=== PATIENT | male | born 1945 | race Caucasian/White ===

== ENCOUNTER 2018-08-01 06:11 | Day surgery (SDC) | payer MEDICARE, BC ==
[2018-07-31 09:30] VITALS: BMI 21.6
[2018-08-01] MEDS ORDERED: Fentanyl 250 MCG/5 ML VIAL ONE (06:51)
[2018-08-01 06:53] LABS: Anion Gap 13 mmol/L (10-20); BUN (Urea Nitrogen) 24 mg/dL (8.4-25.7); Calc. Creatinine Clearance 46 mL/min (70-130); Calcium 9.7 mg/dL (7.8-10.44); Carbon Dioxide 25 mmol/L (23-31); Chloride 105 mmol/L (98-107); Estimated GFR-MDRD 50; Glucose 99 mg/dL (83-110); Potassium 4.3 mmol/L (3.5-5.1); Sodium 139 mmol/L (136-145)
[2018-08-01] MEDS ORDERED: Bupivacaine/Epinephrine 0.25% 30 ML VIAL ONE (06:55)
[2018-08-01] MEDS ORDERED: Ketorolac Tromethamine 30 MG/ML VIAL ONE (06:59)
[2018-08-01] MEDS ORDERED: CEFAZOLIN/Water 2 GM/20 ML SYRINGE ONE (06:59)
--- NOTE | 2018-08-01 09:08 | RAD ---
PORTABLE UPRIGHT FRONTAL CHEST RADIOGRAPH: DATE: 08/01/18. History Preoperative patient. FINDINGS: No pneumothorax or pleural fluid. No focal consolidation or alveolar edema. Heart and mediastinal c ontours are unremarkable. IMPRESSION: No acute findings. POS: [facility]
[2018-08-01] MEDS ORDERED: ePHEDrine/0.9% NaCl/PF SYRINGE 50 mg/10 ml ONE (09:47)
[2018-08-01] MEDS ORDERED: Glycopyrrolate 0.2 MG/ML 5 ML SYRINGE ONE (09:47)
[2018-08-01] MEDS ORDERED: Dexamethasone 20 MG/5 ML VIAL ONE (09:47)
[2018-08-01] MEDS ORDERED: PROPOFOL 200 MG/20 ML VIAL ONE (09:47)
[2018-08-01] MEDS ORDERED: Lidocaine 1% PF 5 ML VIAL ONE (09:47)
[2018-08-01] MEDS ORDERED: Ondansetron HCl/PF 4 MG/2 ML Vial ONE (09:47)
[2018-08-01] MEDS ORDERED: Fentanyl 100 MCG/2 ML VIAL ONE (11:00)
[2018-08-01] MEDS ORDERED: HYDROcodone/Acetaminophen 7.5/325 mg Tablet ONE ×2 (12:24→17:16)
--- NOTE | 2018-08-02 11:31 | OP ---
DATE OF PROCEDURE: 08/01/2018 PREOPERATIVE DIAGNOSES: Recurrent left inguinal hernia with a new right inguinal hernia, both suspec carmelita to be femoral hernias. POSTOPERATIVE DIAGNOSIS: Bilateral femoral hernias. OPERATION PERFORMED: Robotic repair of bilateral femoral hernias with 3DMax mesh. SURGEON: Kurt Doe M.D. ANESTHESIA: General endotracheal. INDICATIONS: The patient is a 73-year-old white male. He had previously undergone a left inguinal h ernia repair with mesh patch and plug a few years ago. When he presented recently, he was noted to h ave bilateral inguinal hernias. Examination of both of these seemed to be consistent with femoral he rnias. I recommended a bilateral robotic repair. OPERATIVE PROCEDURE IN DETAIL: Informed consent was obtained. The patient was taken to the operatin g room where general endotracheal anesthesia was obtained with the patient in supine position. Abdom en was prepped with ChloraPrep and draped in sterile fashion. Martinez catheter was placed. Local anes thetic was infiltrated using 0.25% Marcaine with epinephrine. A 12-mm supraumbilical incision was cr eated through which a Veress needle was passed into the peritoneal cavity and pneumoperitoneum establ ished using carbon dioxide up to a pressure of 15 mmHg. A 12-mm trocar was passed through this incis ion and robotic camera was passed through the port. Under direct vision, 2 additional 8-mm robotic p orts were placed at the supraumbilical level. The robot was then docked to the ports and to the came ra and the operation was continued from the robotic console. Initial examination revealed 2 obvious femoral hernias. The plug from the prior hernia repair at the left direct space was also visualized. Attention was turned first to the right side. A transverse peritoneal incision was created several c entimeters above the hernia. Preperitoneal dissection was carried inferiorly. I was able to dissect the pubic tubercle to the medial aspect and the iliopubic tract laterally. The peritoneum was caref ully dissected off the underlying cord structures. The peritoneum was easily dissected out of the fe moral hernia. Fatty tissue that was also herniated through this defect was also reduced. I widely m obilized the peritoneum off the underlying structures. A large 3DMax mesh patch was obtained and ha elan within the preperitoneal space. It was secured with Vicryl sutures. One of these was placed med ially to the pubic tubercle, one was placed medial to the epigastric vessels and one was placed later al, but anterior to the iliopubic tract. The suture that was placed near the epigastric vessels was placed in such a fashion as to adequately cover the direct space while still leaving enough mesh infe rior to cover the femoral hernia. The peritoneal defect was then closed with a running suture of 3-0 Stratafix in a lateral to medial f ashion. At the medial aspect, this incorporated the reduced fatty tissue from within the femoral her ammy as well. Attention was then turned to the left side. A similar peritoneal incision was created. Care was julianne en to dissect the peritoneum off the mesh plug. The femoral hernia was again recognized and dissecte d. After the preperitoneal space had been fully developed, the mesh patch was placed in a similar fa shion and again secured with the Vicryl sutures. The peritoneum was then closed with a running sutur e of 3-0 Stratafix. Closure of this defect was more challenging and I had to mobilize tissue from th e medial aspect inferiorly to adequately close the peritoneum, but this was completely closed with no tension or bleeding. The fascial defect at the 12-mm port site was closed with 0 Vicryl suture using a GraNee needle. All ports and instruments removed under direct vision. Pneumoperitoneum was carefully evacuated. 0.25% Marcaine with epinephrine was infiltrated at the port site. Skin edges approximated with 4-0 Monocr yl subcuticular suture. Dermabond was placed externally. There were no complications. The patient tolerated the procedure well and was taken to recovery room in stable condition.
--- NOTE | 2018-08-04 17:31 | EKG ---
Test Reason : PREOP Blood Pressure : / mmHG Vent. Rate : 052 BPM Atrial Rate : 052 BPM P-R Int : 178 ms QRS Dur : 128 ms QT Int : 482 ms P-R-T Axes : -21 029 016 degrees QTc Int : 448 ms Sinus bradycardia Right bundle branch block Abnormal ECG When compared with ECG of 09-JUN-2014 12:48, No significant change was found Confirmed by JARED GONZALEZ (2) on 08/04/2018 5:31:29 PM Referred By: TANNER Confirmed By:JARED GONZALEZ
== END 2018-08-01 18:04 | disposition home or self-care (01) ==
LOC: SDC 06:11
PROVIDERS: ATTEND Specialist
PROC: 0YUE4JZ Supplement Bilateral Femoral Region with Synthetic Substitute, Percutaneous Endoscopic Approach (ICD-10-PCS; principal; 2018-08-01)
DX: K41.20 Bilateral femoral hernia, without obstruction or gangrene, not specified as recurrent (principal); F17.290 Nicotine dependence, other tobacco product, uncomplicated; Z79.82 Long term (current) use of aspirin; Z79.899 Other long term (current) drug therapy; Z98.890 Other specified postprocedural states
CPT/HCPCS: 49659; 51798; 71045; 80048; 93005; 96374; C1781; 36415; 93010; J0131; J1885; J3010

== ENCOUNTER 2019-12-17 08:29 | Outpatient (CLI) | payer MEDICARE, BC ==
--- NOTE | 2019-12-17 10:54 | MRI ---
MRI OF THE PROSTATE WITHOUT AND WITH CONTRAST: COMPARISON: None. HISTORY: Elevated PSA. Negative prostate biopsy in [place] 2 years ago. TECHNIQUE: Multiplanar, multisequence MR images were obtained in the prostate without and with contrast. FINDINGS: There is moderate hypertrophy of the central gland consistent with BPH. There is a well-circumscribe d low T2 and high T1 focus within a BPH nodule in the right lobe of the prostate near the apex. This likely represents either a small amount of proteinaceous debris or blood product within this BPH nod ule. No suspicious low T2 signal lesions are seen throughout the prostate. No restricted diffusion or low signal on ADC map is seen in the peripheral zone in the prostate. The seminal vessels are intact. The neurovascular bundles are intact. Scattered diverticula are see n in the colon. No pelvic adenopathy is seen. No marrow signal abnormality is present. IMPRESSION: PIRADS category 2 - low likelihood that a clinically significant cancer is present. POS: [facility]
== END 2019-12-17 08:30 | disposition home or self-care (01) ==
LOC: TBSIIMAG 08:29
PROVIDERS: ATTEND Urology
DX: R97.20 Elevated prostate specific antigen [PSA] (principal); R68.89 Other general symptoms and signs; Z98.890 Other specified postprocedural states
CPT/HCPCS: 72197

== ENCOUNTER 2020-01-21 09:05 | Outpatient (CLI) | payer MEDICARE, BC ==
--- NOTE | 2020-01-21 10:19 | CT ---
CT OF THE ABDOMEN AND PELVIS WITH AND WITHOUT CONTRAST: DATE: 01/21/2020. COMPARISON: None. HISTORY: Elevated PSA, hematuria. TECHNIQUE: Axial CT imaging at 3 mm intervals from the lung bases through the pubic symphysis with and without I V contrast using CT urogram protocol. Coronal and sagittal reformatted imaging of the urographic phase provided. FINDINGS: The visualized lung bases appear unremarkable. The noncontrast enhanced imaging demonstrates no evidence for nephrolithiasis or obstructive uropathy . No free intraperitoneal air or fluid is seen. The pre and postcontrast imaging of the liver, gallbladder, spleen, pancreas, adrenal glands, and kid neys demonstrates no acute findings. There are a few scattered tiny renal hypodensities bilaterally, too small to characterize, measuring up to 5 mm on the right and 7-8 mm on the left. No suspicious enhancing solid renal mass appreciated on either side. The prostate gland is enlarged and heterogeneous, measuring at least 7.3 x 4.9 x 5.6 cm, demonstratin g mass effect on the base of the urinary bladder. There is multifocal diverticulosis of the sigmoid colon with no evidence for diverticulitis. No evide nce for bowel inflammatory change or bowel obstruction. The vascular structures of the abdomen/pelvis appear grossly unremarkable. No abdominal or pelvic lym phadenopathy. Urographic phase imaging demonstrates no filling defect within the renal collecting system or opacifi ed portions of the ureter on either side. Urinary bladder is not optimally assessed on this exam. No worrisome lytic or blastic bone lesion. IMPRESSION: 1. No evidence for nephrolithiasis or obstructive uropathy. Small bilateral renal hypodensities are noted with no suspicious solid enhancing renal mass lesion. 2. The prostate gland is quite enlarged. Transcribed Date/Time: 01/21/2020 10:41 AM
[2020-01-21] MEDS ORDERED: Iopamidol 370 76% 100 ML VIAL ONE (15:18)
== END 2020-01-21 09:06 | disposition home or self-care (01) ==
LOC: BICCT 09:05
PROVIDERS: ATTEND Urology
DX: N40.1 Benign prostatic hyperplasia with lower urinary tract symptoms (principal); R97.20 Elevated prostate specific antigen [PSA]; R31.29 Other microscopic hematuria; R93.5 Abnormal findings on diagnostic imaging of other abdominal regions, including retroperitoneum
CPT/HCPCS: 36415; 74178; 80048; 81001; 82565; 87086; Q9967

== ENCOUNTER 2021-01-19 09:05 | Outpatient (CLI) | payer MEDICARE, BC | END 2021-01-19 09:06 | disposition home or self-care (01) | LOC: BICULT 09:05 | PROVIDERS: ATTEND Urology | DX: N28.9 Disorder of kidney and ureter, unspecified (principal); R97.20 Elevated prostate specific antigen [PSA]; R35.1 Nocturia; R31.29 Other microscopic hematuria | CPT/HCPCS: 36415; 76770; 80048; 81001; 84153; 87086 ==

== ENCOUNTER 2021-10-25 17:42 | Inpatient (IN) | payer MEDICARE, BC ==
[2021-10-25 18:10] LABS: Actual Bicarbonate (HCO3a) 16.9 mEq/L (22-28); Base Excess (BEa) -6.3 mEq/L (-2.0 to +3.0); CO2 Tension 27.8 mmHg (35.0-45.0); Calcium, Ionized (arterial) 1.11 mmol/L (1.12-1.30); Carboxyhemoglobin (COHb) 0.4 gm% (0.0-3.0); Hemoglobin (Hb) 14.3 g/dL (14.0-18.0); O2 Tension (PaO2), arterial 249.1 mmHg (> 70.0); Potassium - ABG Lab 3.36 mmol/L (3.70-5.30)
[2021-10-25 18:12] LABS: Puncture Site LBA
[2021-10-25] MEDS ORDERED: Propofol 1,000 MG/100 ML VIAL IV ONE (18:14)
[2021-10-25] MEDS: Propofol 1,000 MG/100 ML VIAL IV PRN (18:18)
[2021-10-25] MEDS ORDERED: Ondansetron PF 4 MG/2 ML Vial IVP PRN (18:22)
[2021-10-25] MEDS ORDERED: hydrALAZINE 20 MG/ML VIAL SLOW IVP PRN (18:22)
[2021-10-25] MEDS ORDERED: Acetaminophen 650 MG Suppository PR PRN (18:22)
[2021-10-25] MEDS ORDERED: Acetaminophen 500 MG TAB PO PRN (18:22)
[2021-10-25] MEDS ORDERED: Ondansetron ODT 4 MG TAB PO PRN (18:22)
[2021-10-25] MEDS ORDERED: Electrolyte Replacement Protocol 1 EACH FS PRN (18:25)
[2021-10-25] MEDS ORDERED: Morphine 2 MG/ML VIAL SLOW IVP PRN (18:30)
[2021-10-25] MEDS ORDERED: Morphine 4 MG/ML VIAL SLOW IVP PRN ×2 (18:30→18:45)
[2021-10-25] MEDS ORDERED: Propofol BOLUS 1,000 MG/100 ML VIAL IV PRN (18:30)
[2021-10-25] MEDS ORDERED: Fentanyl BOLUS 250 ML IVPB PRN (18:30)
[2021-10-25] MEDS ORDERED: Lorazepam 2 MG/ML VIAL SLOW IVP PRN (18:30)
[2021-10-25] MEDS ORDERED: Sodium Chloride 3% 100 ML IVPB SCH (18:30)
[2021-10-25] MEDS ORDERED: DISCONTINUE PREVIOUS NARCOTIC PAIN MEDICATIONS AND BENZODIAZEPINES FS SCH (18:30)
[2021-10-25 18:33] LABS: #Lymphocytes 1.5 thou/uL (1.20-3.40); #Monocytes 1.2 thou/uL (0.11-0.59); #Neutrophils 7.1 thou/uL (1.40-6.50); %Basophils 0.1 % (0.0-1.0); %Eosinophils 0.4 % (0.0-10.0); %Monocytes 12.3 % (0.0-10.0); %Neutrophils 72.1 % (42.0-75.0); Hemoglobin 13.8 g/dL (14.0-18.0); Mean Corpuscular HGB CONC 34.5 g/dL (32.0-36.0); Mean Corpuscular Hemoglobin 30.1 pg (27.0-31.0); Mean Corpuscular Volume 87.1 fL (78.0-98.0); Mean Platelet Volume 7.4 fL (7.4-10.4); Platelet Count 177 thou/uL (130-400); RBC Distribution Width 10.9 % (11.5-14.5); White Blood Cell (WBC) Count 9.8 thou/uL (4.8-10.8)
[2021-10-25 18:54] LABS: ALT (SGPT) 16 U/L (8-55); AST (SGOT) 20 U/L (5-34); Albumin 3.7 g/dL (3.4-4.8); Alkaline Phosphatase 74 U/L (40-110); Anion Gap 20 mmol/L (10-20); BUN (Urea Nitrogen) 14 mg/dL (8.4-25.7); Bilirubin, Total 1.3 mg/dL (0.2-1.2); Calc. Creatinine Clearance 0 mL/min (70-130); Calcium 8.9 mg/dL (7.8-10.44); Carbon Dioxide 17 mmol/L (23-31); Chloride 85 mmol/L (98-107); Globulin 2.8 g/dL (2.4-3.5); Glucose 122 mg/dL (83-110); Magnesium 1.7 mg/dL (1.6-2.6); Potassium 3.5 mmol/L (3.5-5.1); Protein, Total 6.5 g/dL (5.8-8.1)
[2021-10-25 19:07] LABS: Lactic Acid 8.4 mmol/L (0.5-2.2); Phosphorus 1.8 mg/dL (2.3-4.7); Sodium 118 mmol/L (136-145)
[2021-10-25] MEDS: Fentanyl CADD 100 ML IV SCH (19:13)
[2021-10-25] MEDS ORDERED: Potassium Phosphate 15 MMOL in Sodium Chloride 0.9% 100 ML IVPB SCH (19:15)
[2021-10-25] MEDS ORDERED: Magnesium 2 GM/50 ML 2 GM in Premix Bag 1 BAG IVPB SCH (19:15)
[2021-10-25] MEDS: levETIRAcetam in NS 500 MG in Premix Bag 1 BAG IVPB SCH ×2 (19:46→21:11)
[2021-10-25] MEDS: Famotidine/PF 20 mg/2ml Vial SLOW IVP SCH (19:46)
[2021-10-25 20:38] LABS: Sodium 120 mmol/L (136-145)
[2021-10-25 20:58] LABS: Lactic Acid 1.5 mmol/L (0.5-2.2)
[2021-10-25 23:31] LABS: Sodium 119 mmol/L (136-145)
[2021-10-25 23:32] LABS: Lactic Acid 1.4 mmol/L (0.5-2.2)
[2021-10-26] MEDS: Propofol 1,000 MG/100 ML VIAL IV PRN ×2 (01:15→15:15)
[2021-10-26 01:40] LABS: Sodium 122 mmol/L (136-145)
[2021-10-26 04:06] LABS: #Basophils 0.1 thou/uL (0.0-0.2); #Eosinphils 0.1 thou/uL (0.0-0.7); #Lymphocytes 1.2 thou/uL (1.20-3.40); #Neutrophils 5.5 thou/uL (1.40-6.50); %Basophils 0.7 % (0.0-1.0); %Eosinophils 1.7 % (0.0-10.0); %Lymphocytes 15.3 % (21.0-51.0); %Monocytes 12.8 % (0.0-10.0); %Neutrophils 69.5 % (42.0-75.0); Hemoglobin 13.2 g/dL (14.0-18.0); Mean Corpuscular HGB CONC 35.1 g/dL (32.0-36.0); Mean Corpuscular Hemoglobin 30.4 pg (27.0-31.0); Mean Corpuscular Volume 86.7 fL (78.0-98.0); Mean Platelet Volume 8.3 fL (7.4-10.4); Platelet Count 170 thou/uL (130-400); RBC Distribution Width 11.2 % (11.5-14.5); Red Blood Cell (RBC) Count 4.34 mill/uL (4.70-6.10); White Blood Cell (WBC) Count 7.9 thou/uL (4.8-10.8)
[2021-10-26 04:24] LABS: Sodium 121 mmol/L (136-145)
[2021-10-26 04:32] LABS: ALT (SGPT) 15 U/L (8-55); AST (SGOT) 24 U/L (5-34); Albumin 3.4 g/dL (3.4-4.8); Alkaline Phosphatase 74 U/L (40-110); Anion Gap 12 mmol/L (10-20); BUN (Urea Nitrogen) 12 mg/dL (8.4-25.7); Bilirubin, Total 1.2 mg/dL (0.2-1.2); Calc. Creatinine Clearance 72 mL/min (70-130); Calcium 8.3 mg/dL (7.8-10.44); Carbon Dioxide 25 mmol/L (23-31); Chloride 87 mmol/L (98-107); Globulin 2.6 g/dL (2.4-3.5); Glucose 89 mg/dL (83-110); Potassium 3.1 mmol/L (3.5-5.1); Sodium 121 mmol/L (136-145)
[2021-10-26] MEDS: Potassium Chloride 20 MEQ in Premix Bag 1 BAG IVPB SCH ×2 (04:53→06:35)
[2021-10-26] MEDS ORDERED: Potassium Chloride 20 MEQ in Premix Bag 1 BAG IVPB SCH (05:00)
[2021-10-26 07:01] LABS: Sodium 115 mmol/L (136-145)
[2021-10-26 07:01] LABS: Actual Bicarbonate (HCO3a) 26.1 mEq/L (22-28); Base Excess (BEa) 2.5 mEq/L (-2.0 to +3.0); CO2 Tension 37.3 mmHg (35.0-45.0); Calcium, Ionized (arterial) 1.12 mmol/L (1.12-1.30); Carboxyhemoglobin (COHb) 0.4 gm% (0.0-3.0); Hemoglobin (Hb) 14.6 g/dL (14.0-18.0); O2 Tension (PaO2), arterial 128.5 mmHg (> 70.0); Potassium - ABG Lab 3.31 mmol/L (3.70-5.30); pH, Arterial 7.46 (7.35-7.45)
[2021-10-26 07:15] LABS: ALV-art Gradient 110.075 mmHg (0-20); Puncture Site LRA
[2021-10-26 09:18] LABS: Bacteria/HPF None Seen HPF (None Seen); Bilirubin Negative (Negative); Blood, Urine Trace (Negative); Clarity Clear (Clear); Glucose, Urine (Dipstick) Normal (Negative); Ketone, Urine Negative (Negative); Leukocyte Negative Leu/uL (Negative); Nitrite Negative (Negative); Protein, Urine (Dipstick) Negative (Neg-Trace); RBC/HPF 0-3 HPF (0-3); Specific Gravity, Urine 1.012 (1.002-1.036); Squamous Epithelial None Seen HPF (0-3); Urobilinogen Normal mg/dL (Less than 2); WBC/HPF 0-3 HPF (0-3); pH, Urine 5.5 (5.0-9.0)
[2021-10-26 09:43] LABS: Anion Gap 9 mmol/L (10-20); BUN (Urea Nitrogen) 13 mg/dL (8.4-25.7); Calc. Creatinine Clearance 64 mL/min (70-130); Calcium 8.6 mg/dL (7.8-10.44); Carbon Dioxide 28 mmol/L (23-31); Chloride 87 mmol/L (98-107); Glucose 98 mg/dL (83-110); Potassium 3.4 mmol/L (3.5-5.1); Sodium 121 mmol/L (136-145)
[2021-10-26] MEDS: Famotidine/PF 20 mg/2ml Vial SLOW IVP SCH ×2 (10:02→20:56)
[2021-10-26] MEDS: levETIRAcetam in NS 500 MG in Premix Bag 1 BAG IVPB SCH ×2 (11:03→20:47)
[2021-10-26 12:36] LABS: Sodium 123 mmol/L (136-145)
[2021-10-26] MEDS ORDERED: Sodium Chloride 3% 200 ML IVPB SCH (13:00)
[2021-10-26 14:49] LABS: Anion Gap 10 mmol/L (10-20); BUN (Urea Nitrogen) 14 mg/dL (8.4-25.7); Calc. Creatinine Clearance 70 mL/min (70-130); Calcium 8.3 mg/dL (7.8-10.44); Carbon Dioxide 27 mmol/L (23-31); Chloride 90 mmol/L (98-107); Glucose 104 mg/dL (83-110); Potassium 3.8 mmol/L (3.5-5.1); Sodium 123 mmol/L (136-145)
[2021-10-26 17:12] LABS: Sodium 124 mmol/L (136-145)
[2021-10-26 17:42] LABS: Anion Gap 9 mmol/L (10-20); BUN (Urea Nitrogen) 14 mg/dL (8.4-25.7); Calc. Creatinine Clearance 67 mL/min (70-130); Calcium 8.5 mg/dL (7.8-10.44); Carbon Dioxide 26 mmol/L (23-31); Chloride 91 mmol/L (98-107); Glucose 100 mg/dL (83-110); Potassium 3.8 mmol/L (3.5-5.1); Sodium 122 mmol/L (136-145)
[2021-10-26] MEDS ORDERED: Succinylcholine 200 MG/10 ml SYRINGE FS ONE (17:54)
[2021-10-26 23:22] LABS: Anion Gap 10 mmol/L (10-20); BUN (Urea Nitrogen) 16 mg/dL (8.4-25.7); Calc. Creatinine Clearance 77 mL/min (70-130); Calcium 8.2 mg/dL (7.8-10.44); Carbon Dioxide 24 mmol/L (23-31); Chloride 93 mmol/L (98-107); Glucose 100 mg/dL (83-110); Potassium 3.4 mmol/L (3.5-5.1); Sodium 124 mmol/L (136-145)
[2021-10-27 02:47] LABS: Anion Gap 12 mmol/L (10-20); BUN (Urea Nitrogen) 16 mg/dL (8.4-25.7); Calc. Creatinine Clearance 76 mL/min (70-130); Calcium 8.5 mg/dL (7.8-10.44); Carbon Dioxide 23 mmol/L (23-31); Chloride 92 mmol/L (98-107); Glucose 99 mg/dL (83-110); Potassium 3.7 mmol/L (3.5-5.1); Sodium 123 mmol/L (136-145)
[2021-10-27] MEDS: Fentanyl CADD 100 ML IV SCH (04:09)
[2021-10-27 04:57] LABS: #Monocytes 1.3 thou/uL (0.11-0.59); #Neutrophils 9.3 thou/uL (1.40-6.50); %Basophils 0.3 % (0.0-1.0); %Eosinophils 0.3 % (0.0-10.0); %Lymphocytes 8.9 % (21.0-51.0); %Monocytes 10.9 % (0.0-10.0); %Neutrophils 79.7 % (42.0-75.0); Hemoglobin 14.7 g/dL (14.0-18.0); Mean Corpuscular HGB CONC 34.6 g/dL (32.0-36.0); Mean Corpuscular Hemoglobin 30.5 pg (27.0-31.0); Mean Platelet Volume 7.3 fL (7.4-10.4); Platelet Count 157 thou/uL (130-400); RBC Distribution Width 11.5 % (11.5-14.5); Red Blood Cell (RBC) Count 4.82 mill/uL (4.70-6.10); White Blood Cell (WBC) Count 11.7 thou/uL (4.8-10.8)
[2021-10-27 05:27] LABS: Anion Gap 14 mmol/L (10-20); BUN (Urea Nitrogen) 16 mg/dL (8.4-25.7); Calc. Creatinine Clearance 73 mL/min (70-130); Calcium 8.9 mg/dL (7.8-10.44); Carbon Dioxide 21 mmol/L (23-31); Chloride 92 mmol/L (98-107); Glucose 88 mg/dL (83-110); Magnesium 2.2 mg/dL (1.6-2.6); Phosphorus 2.7 mg/dL (2.3-4.7); Potassium 4.1 mmol/L (3.5-5.1); Sodium 123 mmol/L (136-145)
[2021-10-27] MEDS ORDERED: SODIUM CHLORIDE 3% IVPB SCH (06:00)
[2021-10-27] MEDS ORDERED: ADMIXTURE FEE IVPB SCH (06:00)
[2021-10-27 07:26] LABS: Base Excess (BEa) 1.2 mEq/L (-2.0 to +3.0); CO2 Tension 41.8 mmHg (35.0-45.0); Calcium, Ionized (arterial) 1.15 mmol/L (1.12-1.30); Carboxyhemoglobin (COHb) 0.6 gm% (0.0-3.0); Hemoglobin (Hb) 14.2 g/dL (14.0-18.0); O2 Tension (PaO2), arterial 81.6 mmHg (> 70.0); pH, Arterial 7.41 (7.35-7.45)
[2021-10-27 07:27] LABS: Puncture Site LRA
[2021-10-27] MEDS: Propofol 1,000 MG/100 ML VIAL IV PRN (07:27)
[2021-10-27] MEDS: Famotidine/PF 20 mg/2ml Vial SLOW IVP SCH ×2 (08:37→20:35)
[2021-10-27] MEDS: levETIRAcetam in NS 500 MG in Premix Bag 1 BAG IVPB SCH ×2 (08:38→20:36)
[2021-10-27] MEDS ORDERED: Non-Formulary Item 1 EACH (Omeprazole [Omeprazole] 20 MG Capsule.Dr) PO SCH (09:00)
[2021-10-27] MEDS ORDERED: Sodium Bicarbonate Tab 325 MG TAB PER TUBE PRN (09:30)
[2021-10-27] MEDS ORDERED: Pancrelipase DR 12,000 1 CAP FS PRN (09:30)
[2021-10-27 09:40] LABS: Anion Gap 13 mmol/L (10-20); BUN (Urea Nitrogen) 16 mg/dL (8.4-25.7); Calc. Creatinine Clearance 73 mL/min (70-130); Calcium 9.3 mg/dL (7.8-10.44); Carbon Dioxide 24 mmol/L (23-31); Chloride 93 mmol/L (98-107); Glucose 89 mg/dL (83-110); Potassium 3.9 mmol/L (3.5-5.1); Sodium 126 mmol/L (136-145)
[2021-10-27] MEDS: Piperacillin/Tazobactam 3.375 GM in Sodium Chloride 0.9% 100 ML IVPB SCH ×3 (10:00→19:21)
[2021-10-27] MEDS ORDERED: Piperacillin/Tazobactam 3.375 GM in Sodium Chloride 0.9% 100 ML IVPB SCH (12:00)
[2021-10-27] MEDS ORDERED: DC Sedation Protocol FS ONE (13:07)
[2021-10-27 13:55] LABS: Anion Gap 12 mmol/L (10-20); BUN (Urea Nitrogen) 16 mg/dL (8.4-25.7); Calc. Creatinine Clearance 63 mL/min (70-130); Calcium 8.8 mg/dL (7.8-10.44); Carbon Dioxide 25 mmol/L (23-31); Chloride 94 mmol/L (98-107); Glucose 110 mg/dL (83-110); Potassium 3.8 mmol/L (3.5-5.1); Sodium 127 mmol/L (136-145)
[2021-10-27 14:56] LABS: Legionella Urinary Ag Negative (Negative); Strep pneumo Urine Ag NEGATIVE (NEGATIVE)
[2021-10-27 17:52] LABS: Anion Gap 13 mmol/L (10-20); BUN (Urea Nitrogen) 16 mg/dL (8.4-25.7); Calc. Creatinine Clearance 66 mL/min (70-130); Calcium 8.8 mg/dL (7.8-10.44); Carbon Dioxide 25 mmol/L (23-31); Chloride 94 mmol/L (98-107); Glucose 104 mg/dL (83-110); Potassium 3.8 mmol/L (3.5-5.1); Sodium 128 mmol/L (136-145)
[2021-10-27 21:47] LABS: Anion Gap 13 mmol/L (10-20); BUN (Urea Nitrogen) 17 mg/dL (8.4-25.7); Calc. Creatinine Clearance 58 mL/min (70-130); Carbon Dioxide 24 mmol/L (23-31); Chloride 96 mmol/L (98-107); Potassium 3.6 mmol/L (3.5-5.1); Sodium 129 mmol/L (136-145)
[2021-10-27 21:48] LABS: Calcium 8.6 mg/dL (7.8-10.44); Glucose 112 mg/dL (83-110)
[2021-10-28] MEDS: Piperacillin/Tazobactam 3.375 GM in Sodium Chloride 0.9% 100 ML IVPB SCH ×3 (01:59→17:41)
[2021-10-28 03:45] LABS: #Eosinphils 0.1 thou/uL (0.0-0.7); #Lymphocytes 0.9 thou/uL (1.20-3.40); #Neutrophils 10.2 thou/uL (1.40-6.50); %Basophils 0.2 % (0.0-1.0); %Eosinophils 0.5 % (0.0-10.0); %Lymphocytes 7.1 % (21.0-51.0); %Monocytes 8.3 % (0.0-10.0); Hemoglobin 13.5 g/dL (14.0-18.0); Mean Corpuscular HGB CONC 34.3 g/dL (32.0-36.0); Mean Corpuscular Hemoglobin 30.2 pg (27.0-31.0); Mean Corpuscular Volume 87.9 fL (78.0-98.0); Mean Platelet Volume 7.2 fL (7.4-10.4); Platelet Count 163 thou/uL (130-400); RBC Distribution Width 11.4 % (11.5-14.5); Red Blood Cell (RBC) Count 4.47 mill/uL (4.70-6.10); White Blood Cell (WBC) Count 12.2 thou/uL (4.8-10.8)
[2021-10-28 04:13] LABS: Anion Gap 11 mmol/L (10-20); BUN (Urea Nitrogen) 16 mg/dL (8.4-25.7); Calc. Creatinine Clearance 65 mL/min (70-130); Calcium 8.9 mg/dL (7.8-10.44); Carbon Dioxide 24 mmol/L (23-31); Chloride 98 mmol/L (98-107); Glucose 110 mg/dL (83-110); Potassium 3.8 mmol/L (3.5-5.1); Sodium 129 mmol/L (136-145)
[2021-10-28] MEDS: levETIRAcetam in NS 500 MG in Premix Bag 1 BAG IVPB SCH ×2 (08:08→21:25)
[2021-10-28] MEDS: Famotidine/PF 20 mg/2ml Vial SLOW IVP SCH ×2 (08:08→21:25)
[2021-10-28] MEDS ORDERED: FLU VACC QS2021-22(65YR UP)/PF 240 MCG/0.7 ML SYRINGE IM ONE (09:00)
[2021-10-28] MEDS ORDERED: Lisinopril 10 MG TAB PO SCH (15:30)
[2021-10-28] MEDS: Sodium Chloride 1 GM TAB PO SCH ×2 (15:56→21:25)
[2021-10-28] MEDS ORDERED: Melatonin 3 MG TAB PO SCH (23:00)
[2021-10-29 01:56] LABS: #Eosinphils 0.2 thou/uL (0.0-0.7); #Lymphocytes 0.8 thou/uL (1.20-3.40); #Neutrophils 8.7 thou/uL (1.40-6.50); %Basophils 0.1 % (0.0-1.0); %Eosinophils 1.6 % (0.0-10.0); %Lymphocytes 7.5 % (21.0-51.0); %Monocytes 8.9 % (0.0-10.0); Hemoglobin 13.2 g/dL (14.0-18.0); Mean Corpuscular HGB CONC 33.6 g/dL (32.0-36.0); Mean Corpuscular Hemoglobin 29.5 pg (27.0-31.0); Mean Corpuscular Volume 87.7 fL (78.0-98.0); Platelet Count 178 thou/uL (130-400); RBC Distribution Width 11.3 % (11.5-14.5); Red Blood Cell (RBC) Count 4.49 mill/uL (4.70-6.10); White Blood Cell (WBC) Count 10.6 thou/uL (4.8-10.8)
[2021-10-29 02:08] LABS: INR-International Normal Ratio 1.4; Prothrombin Time 16.9 sec (12.0-14.7)
[2021-10-29 02:09] LABS: PTT 43.1 sec (22.9-36.1)
[2021-10-29] MEDS: Piperacillin/Tazobactam 3.375 GM in Sodium Chloride 0.9% 100 ML IVPB SCH ×3 (02:52→17:59)
[2021-10-29 03:52] LABS: Anion Gap 14 mmol/L (10-20); BUN (Urea Nitrogen) 21 mg/dL (8.4-25.7); Calc. Creatinine Clearance 61 mL/min (70-130); Calcium 8.9 mg/dL (7.8-10.44); Carbon Dioxide 23 mmol/L (23-31); Chloride 100 mmol/L (98-107); Glucose 109 mg/dL (83-110); Potassium 3.6 mmol/L (3.5-5.1); Sodium 132 mmol/L (136-145)
[2021-10-29] MEDS ORDERED: Potassium Chloride 20 MEQ TAB PO SCH (06:30)
[2021-10-29 07:20] LABS: Magnesium 1.9 mg/dL (1.6-2.6)
[2021-10-29] MEDS: Famotidine/PF 20 mg/2ml Vial SLOW IVP SCH ×2 (08:58→21:29)
[2021-10-29] MEDS: levETIRAcetam in NS 500 MG in Premix Bag 1 BAG IVPB SCH ×2 (08:58→21:29)
[2021-10-29] MEDS ORDERED: Lisinopril 10 MG TAB PO SCH (09:00)
[2021-10-29] MEDS: Sodium Chloride 1 GM TAB PO SCH ×3 (09:21→21:30)
[2021-10-29] MEDS ORDERED: Lorazepam 0.5 MG TAB PO PRN (13:41)
[2021-10-29] MEDS ORDERED: Lorazepam 2 MG/ML VIAL SLOW IVP PRN (13:41)
[2021-10-29] MEDS ORDERED: Ziprasidone 20 MG CAP PO SCH (13:42)
[2021-10-29] MEDS: Ziprasidone 20 MG CAP PO SCH ×2 (14:30→14:45)
[2021-10-29] MEDS: Trospium 20 MG TAB PO SCH (21:29)
[2021-10-29] MEDS: Lisinopril 10 MG TAB PO SCH (21:29)
[2021-10-30] MEDS: Piperacillin/Tazobactam 3.375 GM in Sodium Chloride 0.9% 100 ML IVPB SCH ×3 (01:21→18:08)
[2021-10-30 03:56] LABS: Anion Gap 12 mmol/L (10-20); BUN (Urea Nitrogen) 17 mg/dL (8.4-25.7); Calc. Creatinine Clearance 71 mL/min (70-130); Calcium 9.1 mg/dL (7.8-10.44); Carbon Dioxide 21 mmol/L (23-31); Chloride 104 mmol/L (98-107); Glucose 101 mg/dL (83-110); Potassium 4.2 mmol/L (3.5-5.1); Sodium 133 mmol/L (136-145)
[2021-10-30] MEDS ORDERED: Ziprasidone 20 MG CAP PO SCH (08:00)
[2021-10-30 08:08] LABS: #Basophils 0.1 thou/uL (0.0-0.2); #Eosinphils 0.4 thou/uL (0.0-0.7); #Monocytes 0.8 thou/uL (0.11-0.59); #Neutrophils 7.2 thou/uL (1.40-6.50); %Basophils 0.7 % (0.0-1.0); %Eosinophils 4.5 % (0.0-10.0); %Lymphocytes 10.7 % (21.0-51.0); %Monocytes 8.8 % (0.0-10.0); %Neutrophils 75.3 % (42.0-75.0); Hemoglobin 13.6 g/dL (14.0-18.0); Mean Corpuscular HGB CONC 33.7 g/dL (32.0-36.0); Mean Corpuscular Hemoglobin 29.8 pg (27.0-31.0); Mean Corpuscular Volume 88.4 fL (78.0-98.0); Mean Platelet Volume 6.8 fL (7.4-10.4); Platelet Count 263 thou/uL (130-400); RBC Distribution Width 11.3 % (11.5-14.5); Red Blood Cell (RBC) Count 4.57 mill/uL (4.70-6.10); White Blood Cell (WBC) Count 9.5 thou/uL (4.8-10.8)
[2021-10-30] MEDS: levETIRAcetam in NS 500 MG in Premix Bag 1 BAG IVPB SCH ×2 (08:34→21:14)
[2021-10-30] MEDS: Sodium Chloride 1 GM TAB PO SCH ×3 (08:37→21:29)
[2021-10-30] MEDS: Famotidine/PF 20 mg/2ml Vial SLOW IVP SCH ×2 (08:37→21:14)
[2021-10-30] MEDS: Trospium 20 MG TAB PO SCH ×2 (08:38→21:15)
[2021-10-30] MEDS: Tamsulosin HCl 0.4 MG CAP PO SCH (08:39)
[2021-10-30] MEDS: Lisinopril 10 MG TAB PO SCH ×2 (08:39→21:15)
[2021-10-30] MEDS: Dutasteride 0.5 MG CAP PO SCH (11:57)
[2021-10-31] MEDS: Piperacillin/Tazobactam 3.375 GM in Sodium Chloride 0.9% 100 ML IVPB SCH ×3 (02:17→18:22)
[2021-10-31 04:02] LABS: #Eosinphils 0.4 thou/uL (0.0-0.7); #Lymphocytes 1.1 thou/uL (1.20-3.40); #Monocytes 0.8 thou/uL (0.11-0.59); #Neutrophils 5.9 thou/uL (1.40-6.50); %Basophils 0.4 % (0.0-1.0); %Eosinophils 5.4 % (0.0-10.0); %Monocytes 9.2 % (0.0-10.0); %Neutrophils 71.9 % (42.0-75.0); Hemoglobin 13.5 g/dL (14.0-18.0); Mean Corpuscular HGB CONC 33.6 g/dL (32.0-36.0); Mean Corpuscular Hemoglobin 29.2 pg (27.0-31.0); Mean Corpuscular Volume 86.9 fL (78.0-98.0); Mean Platelet Volume 6.4 fL (7.4-10.4); Platelet Count 297 thou/uL (130-400); RBC Distribution Width 11.3 % (11.5-14.5); Red Blood Cell (RBC) Count 4.62 mill/uL (4.70-6.10); White Blood Cell (WBC) Count 8.2 thou/uL (4.8-10.8)
[2021-10-31 04:21] LABS: Anion Gap 12 mmol/L (10-20); BUN (Urea Nitrogen) 18 mg/dL (8.4-25.7); Calc. Creatinine Clearance 66 mL/min (70-130); Calcium 9.2 mg/dL (7.8-10.44); Carbon Dioxide 21 mmol/L (23-31); Chloride 105 mmol/L (98-107); Glucose 106 mg/dL (83-110); Potassium 3.7 mmol/L (3.5-5.1); Sodium 134 mmol/L (136-145)
[2021-10-31] MEDS ORDERED: Lisinopril 20 MG TAB PO SCH (09:00)
[2021-10-31] MEDS: levETIRAcetam in NS 500 MG in Premix Bag 1 BAG IVPB SCH ×2 (10:13→20:45)
[2021-10-31] MEDS: Tamsulosin HCl 0.4 MG CAP PO SCH (10:14)
[2021-10-31] MEDS: Potassium Bicarbonate/Cit Ac 20 MEQ TAB PO SCH (10:14)
[2021-10-31] MEDS: Carvedilol 3.125 MG TAB PO SCH ×2 (10:14→20:43)
[2021-10-31] MEDS: Trospium 20 MG TAB PO SCH (10:14)
[2021-10-31] MEDS: Famotidine/PF 20 mg/2ml Vial SLOW IVP SCH ×2 (10:15→20:45)
[2021-10-31] MEDS: Sodium Chloride 1 GM TAB PO SCH ×3 (10:15→20:43)
[2021-10-31] MEDS: Dutasteride 0.5 MG CAP PO SCH (10:15)
[2021-10-31] MEDS ORDERED: Dextrose 5 % And 0.9 % NaCl 500 ML IV SCH (15:45)
[2021-11-01] MEDS: Piperacillin/Tazobactam 3.375 GM in Sodium Chloride 0.9% 100 ML IVPB SCH ×3 (02:39→16:55)
[2021-11-01 04:31] LABS: Anion Gap 13 mmol/L (10-20); BUN (Urea Nitrogen) 15 mg/dL (8.4-25.7); Calc. Creatinine Clearance 66 mL/min (70-130); Calcium 9.5 mg/dL (7.8-10.44); Carbon Dioxide 20 mmol/L (23-31); Chloride 105 mmol/L (98-107); Glucose 98 mg/dL (83-110); Potassium 3.8 mmol/L (3.5-5.1); Sodium 134 mmol/L (136-145)
[2021-11-01] MEDS: Dextrose 5%-Lactated Ringers 1,000 ML IV SCH (08:58)
[2021-11-01] MEDS: levETIRAcetam in NS 500 MG in Premix Bag 1 BAG IVPB SCH ×2 (08:59→20:28)
[2021-11-01] MEDS: Lisinopril 20 MG TAB PO SCH (12:36)
[2021-11-01] MEDS: Famotidine/PF 20 mg/2ml Vial SLOW IVP SCH ×2 (12:36→20:29)
[2021-11-01] MEDS: Carvedilol 3.125 MG TAB PO SCH ×2 (12:37→20:29)
[2021-11-01] MEDS: Tamsulosin HCl 0.4 MG CAP PO SCH (12:37)
[2021-11-01] MEDS: Sodium Chloride 1 GM TAB PO SCH ×3 (12:37→20:29)
[2021-11-01] MEDS: Dutasteride 0.5 MG CAP PO SCH (12:37)
[2021-11-01] MEDS: Potassium Bicarbonate/Cit Ac 20 MEQ TAB PO SCH (12:37)
[2021-11-01] MEDS: Sodium Bicarbonate Tab 325 MG TAB PO SCH ×3 (12:38→20:29)
[2021-11-01 16:46] LABS: Anion Gap 13 mmol/L (10-20); BUN (Urea Nitrogen) 16 mg/dL (8.4-25.7); Calc. Creatinine Clearance 57 mL/min (70-130); Calcium 9.5 mg/dL (7.8-10.44); Carbon Dioxide 21 mmol/L (23-31); Chloride 103 mmol/L (98-107); Glucose 116 mg/dL (83-110); Potassium 4.1 mmol/L (3.5-5.1); Sodium 133 mmol/L (136-145)
[2021-11-02] MEDS: Piperacillin/Tazobactam 3.375 GM in Sodium Chloride 0.9% 100 ML IVPB SCH ×3 (02:13→17:17)
[2021-11-02] MEDS: Dutasteride 0.5 MG CAP PO SCH (10:03)
[2021-11-02] MEDS: Sodium Bicarbonate Tab 325 MG TAB PO SCH ×3 (10:03→20:26)
[2021-11-02] MEDS: Tamsulosin HCl 0.4 MG CAP PO SCH (10:03)
[2021-11-02] MEDS: Lisinopril 20 MG TAB PO SCH (10:04)
[2021-11-02] MEDS: Potassium Bicarbonate/Cit Ac 20 MEQ TAB PO SCH (10:04)
[2021-11-02] MEDS: levETIRAcetam in NS 500 MG in Premix Bag 1 BAG IVPB SCH ×2 (10:05→20:24)
[2021-11-02] MEDS: Carvedilol 3.125 MG TAB PO SCH ×2 (10:05→20:26)
[2021-11-02] MEDS: Sodium Chloride 1 GM TAB PO SCH ×3 (10:05→20:26)
[2021-11-02] MEDS: Famotidine/PF 20 mg/2ml Vial SLOW IVP SCH ×2 (10:05→20:26)
[2021-11-02] MEDS: Dextrose 5%-Lactated Ringers 1,000 ML IV SCH (10:12)
[2021-11-02 11:22] VITALS: BMI 19.3
[2021-11-03] MEDS: Piperacillin/Tazobactam 3.375 GM in Sodium Chloride 0.9% 100 ML IVPB SCH ×2 (02:04→12:00)
[2021-11-03 07:45] LABS: Albumin 3.2 g/dL (3.4-4.8); Anion Gap 12 mmol/L (10-20); BUN (Urea Nitrogen) 14 mg/dL (8.4-25.7); BUN/Creatinine Ratio 12.28; Calc. Creatinine Clearance 50 mL/min (70-130); Carbon Dioxide 21 mmol/L (23-31); Chloride 108 mmol/L (98-107); Glucose 103 mg/dL (83-110); Phosphorus 2.7 mg/dL (2.3-4.7); Potassium 3.9 mmol/L (3.5-5.1); Sodium 137 mmol/L (136-145)
[2021-11-03] MEDS: Potassium Bicarbonate/Cit Ac 20 MEQ TAB PO SCH (08:57)
[2021-11-03] MEDS: Sodium Bicarbonate Tab 325 MG TAB PO SCH (08:57)
[2021-11-03] MEDS: Lisinopril 20 MG TAB PO SCH (08:57)
[2021-11-03] MEDS: Sodium Chloride 1 GM TAB PO SCH (08:57)
[2021-11-03] MEDS: Tamsulosin HCl 0.4 MG CAP PO SCH (08:58)
[2021-11-03] MEDS: Famotidine/PF 20 mg/2ml Vial SLOW IVP SCH (08:58)
[2021-11-03] MEDS: Carvedilol 3.125 MG TAB PO SCH (08:58)
[2021-11-03] MEDS ORDERED: levETIRAcetam 500 MG TAB PO SCH (09:00)
[2021-11-03] MEDS: Dutasteride 0.5 MG CAP PO SCH (12:04)
[2021-11-03] MEDS ORDERED: Sodium Bicarbonate Tab 325 MG TAB PO SCH (15:00)
[2021-11-03 17:17] VITALS: BP 134/85; TEMP 98.6
== END 2021-11-03 17:36 | DRG 208 ==
LOC: 2NO 17:44 → CCU 18:02 → IMCU/EMU 10-31 12:56 → T4-A 11-02 16:59
PROVIDERS: ADMIT Family Medicine; ATTEND Internal Medicine
PROC: 5A1945Z Respiratory Ventilation, 24-96 Consecutive Hours (ICD-10-PCS; 2021-10-25)
PROC: 0BH17EZ Insertion of Endotracheal Airway into Trachea, Via Natural or Artificial Opening (ICD-10-PCS; 2021-10-25)
PROC: 3E1K78Z Irrigation of Genitourinary Tract using Irrigating Substance, Via Natural or Artificial Opening (ICD-10-PCS; principal; 2021-10-29)
DX: J69.0 Pneumonitis due to inhalation of food and vomit (principal); J96.01 Acute respiratory failure with hypoxia; G92.9 Unspecified toxic encephalopathy; E22.2 Syndrome of inappropriate secretion of antidiuretic hormone; N99.841 Postprocedural hematoma of a genitourinary system organ or structure following other procedure; E87.2 Acidosis; N40.0 Benign prostatic hyperplasia without lower urinary tract symptoms; I10 Essential (primary) hypertension; H91.90 Unspecified hearing loss, unspecified ear; R13.10 Dysphagia, unspecified; E87.6 Hypokalemia; R56.9 Unspecified convulsions; K21.9 Gastro-esophageal reflux disease without esophagitis; E83.42 Hypomagnesemia; E83.39 Other disorders of phosphorus metabolism; Y84.6 Urinary catheterization as the cause of abnormal reaction of the patient, or of later complication, without mention of misadventure at the time of the procedure; T50.2X5A Adverse effect of carbonic-anhydrase inhibitors, benzothiadiazides and other diuretics, initial encounter; Z90.49 Acquired absence of other specified parts of digestive tract; Z79.82 Long term (current) use of aspirin; Z79.899 Other long term (current) drug therapy; Z82.49 Family history of ischemic heart disease and other diseases of the circulatory system; Z78.1 Physical restraint status
CPT/HCPCS: 36415; 36416; 36600; 71045; 71260; 74230; 80048; 80069; 81001; 82533; 82805; 83605; 83735; 83930; 83935; 84100; 84295; 84300; 84443; 84560; 85025; 85610; 85730; 87070; 87077; 87186; 87205; 87449; 87899; 94002; 94003; J1953; J2060; J2405; J2543; J2704; J3010; J3475; J3480; J3490; J7042; J7131; S0028

== ENCOUNTER 2022-06-02 04:28 | Observation (INO) | payer MEDICARE, BC ==
[2022-06-02] MEDS ORDERED: Lidocaine 1% PF 5 ML VIAL ONE (05:25)
[2022-06-02] MEDS ORDERED: Boostrix 0.5 ML (Tdap) VIAL ONE (05:25)
[2022-06-02 05:51] LABS: #Basophils 0.1 thou/uL (0.0-0.2); #Eosinphils 0.4 thou/uL (0.0-0.7); #Lymphocytes 1.4 thou/uL (1.20-3.40); #Monocytes 0.5 thou/uL (0.11-0.59); #Neutrophils 4.7 thou/uL (1.40-6.50); %Basophils 0.7 % (0.0-1.0); %Eosinophils 5.8 % (0.0-10.0); %Lymphocytes 19.1 % (21.0-51.0); %Monocytes 7.6 % (0.0-10.0); %Neutrophils 66.7 % (42.0-75.0); Hemoglobin 13.9 g/dL (14.0-18.0); Mean Corpuscular HGB CONC 32.3 g/dL (32.0-36.0); Mean Corpuscular Hemoglobin 29.9 pg (27.0-31.0); Mean Corpuscular Volume 92.5 fL (78.0-98.0); Platelet Count 168 thou/uL (130-400); RBC Distribution Width 11.8 % (11.5-14.5); Red Blood Cell (RBC) Count 4.64 mill/uL (4.70-6.10); White Blood Cell (WBC) Count 7.1 thou/uL (4.8-10.8)
[2022-06-02 06:09] LABS: ALT (SGPT) 21 U/L (8-55); AST (SGOT) 22 U/L (5-34); Alkaline Phosphatase 87 U/L (40-110); Anion Gap 12 mmol/L (10-20); BUN (Urea Nitrogen) 29 mg/dL (8.4-25.7); Bilirubin, Total 0.7 mg/dL (0.2-1.2); CK (CPK) 204 U/L (30-200); Calc. Creatinine Clearance 0 mL/min (70-130); Calcium 9.6 mg/dL (7.8-10.44); Carbon Dioxide 24 mmol/L (23-31); Chloride 107 mmol/L (98-107); Estimated GFR 52; Globulin 2.8 g/dL (2.4-3.5); Glucose 98 mg/dL (83-110); Magnesium 2.2 mg/dL (1.6-2.6); Potassium 4.4 mmol/L (3.5-5.1); Protein, Total 6.8 g/dL (5.8-8.1); Sodium 139 mmol/L (136-145)
[2022-06-02 06:51] LABS: CKMB 4.6 ng/mL (0-6.6)
[2022-06-02] MEDS ORDERED: Ondansetron PF 4 MG/2 ML Vial IVP PRN (08:45)
[2022-06-02] MEDS ORDERED: Acetaminophen 325 MG TAB PO PRN (08:45)
[2022-06-02 09:28] LABS: Troponin I 0.013 ng/mL (< 0.028)
[2022-06-02] MEDS: Sodium Chloride 0.9% 1,000 ML IV SCH ×2 (10:52→20:29)
[2022-06-02] MEDS: Tamsulosin HCl 0.4 MG CAP PO SCH (10:53)
[2022-06-02] MEDS: Aspirin 325 mg Enteric Coated Tablet PO SCH (10:53)
[2022-06-02] MEDS: Enoxaparin Sodium 40 MG/0.4 ML SYRINGE SC SCH (10:54)
[2022-06-02] MEDS: traMADol HCl 50 MG TAB PO PRN (15:09)
[2022-06-02] MEDS ORDERED: Atorvastatin Calcium 40 MG TAB PO SCH (21:00)
[2022-06-03] MEDS: traMADol HCl 50 MG TAB PO PRN (04:13)
[2022-06-03 05:20] LABS: #Eosinphils 0.4 thou/uL (0.0-0.7); #Lymphocytes 1.2 thou/uL (1.20-3.40); #Monocytes 0.6 thou/uL (0.11-0.59); #Neutrophils 4.1 thou/uL (1.40-6.50); %Basophils 0.6 % (0.0-1.0); %Eosinophils 6.1 % (0.0-10.0); %Lymphocytes 19.5 % (21.0-51.0); %Neutrophils 64.8 % (42.0-75.0); Hemoglobin 12.7 g/dL (14.0-18.0); Mean Corpuscular HGB CONC 32.8 g/dL (32.0-36.0); Mean Corpuscular Hemoglobin 30.2 pg (27.0-31.0); Mean Platelet Volume 7.7 fL (7.4-10.4); Platelet Count 158 thou/uL (130-400); RBC Distribution Width 11.7 % (11.5-14.5); Red Blood Cell (RBC) Count 4.21 mill/uL (4.70-6.10); White Blood Cell (WBC) Count 6.3 thou/uL (4.8-10.8)
[2022-06-03 05:32] LABS: Anion Gap 13 mmol/L (10-20); BUN (Urea Nitrogen) 16 mg/dL (8.4-25.7); Calc. Creatinine Clearance 61 mL/min (70-130); Calcium 8.8 mg/dL (7.8-10.44); Carbon Dioxide 20 mmol/L (23-31); Chloride 108 mmol/L (98-107); Estimated GFR 89; Glucose 93 mg/dL (83-110); Potassium 4.2 mmol/L (3.5-5.1); Sodium 137 mmol/L (136-145)
[2022-06-03] MEDS: Sodium Chloride 0.9% 1,000 ML IV SCH (06:46)
[2022-06-03] MEDS: Aspirin 325 mg Enteric Coated Tablet PO SCH (08:47)
[2022-06-03] MEDS: Enoxaparin Sodium 40 MG/0.4 ML SYRINGE SC SCH (08:47)
[2022-06-03] MEDS: Tamsulosin HCl 0.4 MG CAP PO SCH (08:47)
[2022-06-03 12:44] VITALS: BMI 19.9
[2022-06-03 12:53] VITALS: BP 138/67; TEMP 97.7
== END 2022-06-03 13:20 | disposition home or self-care (01) ==
LOC: ERS 05:04 → 2SW 08:43
PROVIDERS: ADMIT Internal Medicine; ATTEND Internal Medicine
DX: I95.1 Orthostatic hypotension (principal); R00.1 Bradycardia, unspecified; N17.9 Acute kidney failure, unspecified; N40.0 Benign prostatic hyperplasia without lower urinary tract symptoms; I10 Essential (primary) hypertension; M25.511 Pain in right shoulder; I45.10 Unspecified right bundle-branch block; Z86.73 Personal history of transient ischemic attack (TIA), and cerebral infarction without residual deficits; Z79.82 Long term (current) use of aspirin; Z79.899 Other long term (current) drug therapy; Z20.822 Contact with and (suspected) exposure to COVID-19; W19.XXXA Unspecified fall, initial encounter; Y92.009 Unspecified place in unspecified non-institutional (private) residence as the place of occurrence of the external cause
CPT/HCPCS: 12013; 70450; 73030; 80048; 80053; 82550; 82553; 83735; 84484 ×2; 85025 ×2; 90471; 90715; 93005; 97116; 99285; U0003; U0005; 36415; 96360; 96361; 96372; G0378; J1650; J7050

== ENCOUNTER 2022-08-24 14:53 | Outpatient (CLI) | payer MEDICARE, BC | END 2022-08-24 14:54 | disposition home or self-care (01) | LOC: BICULT 14:53 | PROVIDERS: ATTEND Family Medicine | DX: R22.31 Localized swelling, mass and lump, right upper limb (principal) | CPT/HCPCS: 76999 ==

== ENCOUNTER 2022-09-14 10:45 | Day surgery (SDC) | payer MEDICARE, BC ==
[2022-09-13 10:21] VITALS: BMI 19.5
[2022-09-14] MEDS ORDERED: PROPOFOL 200 MG/20 ML VIAL ONE (12:18)
[2022-09-14] MEDS ORDERED: ePHEDrine 50 MG/ML VIAL ONE (12:18)
== END 2022-09-14 14:00 | disposition home or self-care (01) ==
LOC: SDC 10:45
PROVIDERS: ATTEND Internal Medicine Gastroenterology
PROC: 0DB38ZX Excision of Lower Esophagus, Via Natural or Artificial Opening Endoscopic, Diagnostic (ICD-10-PCS; principal; 2022-09-14)
PROC: 0D758ZZ Dilation of Esophagus, Via Natural or Artificial Opening Endoscopic (ICD-10-PCS; 2022-09-14)
DX: R13.12 Dysphagia, oropharyngeal phase (principal); K21.00 Gastro-esophageal reflux disease with esophagitis, without bleeding; K44.9 Diaphragmatic hernia without obstruction or gangrene; I10 Essential (primary) hypertension; E78.00 Pure hypercholesterolemia, unspecified; F17.220 Nicotine dependence, chewing tobacco, uncomplicated; Z79.82 Long term (current) use of aspirin; Z79.899 Other long term (current) drug therapy
CPT/HCPCS: 88305; J2704; J3490

== ENCOUNTER 2022-12-08 11:43 | Outpatient (CLI) | payer MEDICARE, BC | END 2022-12-08 11:44 | disposition home or self-care (01) | LOC: PET 11:43 | PROVIDERS: ATTEND Psychiatry & Neurology Neurology | DX: R41.3 Other amnesia (principal); I25.2 Old myocardial infarction | CPT/HCPCS: 70450; 78803; A9552 ==

== ENCOUNTER 2023-06-27 12:41 | Outpatient (CLI) | payer MEDICARE, BC ==
[2023-06-27 13:51] LABS: #Basophils 0.1 10x3/uL (0.0-0.2); #Eosinphils 0.4 10x3/uL (0.0-0.5); #Monocytes 0.5 10x3/uL (0.0-1.1); #Neutrophils 4.2 10x3/uL (1.5-8.4); %Basophils 1.3 % (0.0-2.0); %Eosinophils 6.1 % (0.0-6.0); %Lymphocytes 26.7 % (18.0-47.0); %Monocytes 6.6 % (0.0-10.0); %Neutrophils 58.9 % (40.0-75.0); Hemoglobin 14.5 g/dL (13.5-17.5); Mean Corpuscular HGB CONC 32.2 g/dL (32.0-36.0); Mean Corpuscular Hemoglobin 28.6 pg (27.0-33.0); Mean Corpuscular Volume 88.8 fl (81.2-95.1); Mean Platelet Volume 9.9 fl (7.4-10.4); Platelet Count 234 10x3/uL (150-450); RBC Distribution Width 13.2 % (11.5-14.5); Red Blood Cell (RBC) Count 5.07 10x6/uL (4.32-5.72); White Blood Cell (WBC) Count 7.2 10x3/uL (3.5-10.5)
== END 2023-06-27 12:42 | disposition home or self-care (01) ==
LOC: LABBT 12:41
PROVIDERS: ATTEND Orthopaedic Surgery Hand Surgery
DX: Z01.818 Encounter for other preprocedural examination (principal); D36.7 Benign neoplasm of other specified sites
CPT/HCPCS: 85025; 93005; 93010

== ENCOUNTER 2023-06-29 08:56 | Day surgery (SDC) | payer MEDICARE, BC ==
[2023-06-27 13:23] VITALS: BMI 19.9
[2023-06-29] MEDS ORDERED: Bupivacaine PF 0.5% 30 ML VIAL ONE (10:57)
[2023-06-29] MEDS ORDERED: Bacitracin Zinc Ointment 30 gm TUBE ONE (10:58)
[2023-06-29] MEDS ORDERED: fentaNYL PF 100 MCG/2 ML SYRINGE ONE (12:34)
[2023-06-29] MEDS ORDERED: CEFAZOLIN 2 GM VIAL ONE (12:46)
[2023-06-29] MEDS ORDERED: Sodium Chloride 0.9% 100 ML ONE (12:46)
[2023-06-29] MEDS ORDERED: Ondansetron PF 4 MG/2 ML Vial ONE (12:51)
[2023-06-29] MEDS ORDERED: Lidocaine 1% PF 5 ML VIAL ONE (12:51)
[2023-06-29] MEDS ORDERED: PROPOFOL 200 MG/20 ML VIAL ONE (12:51)
[2023-06-29] MEDS ORDERED: Dexamethasone 20 MG/5 ML VIAL ONE (12:51)
== END 2023-06-29 16:05 | disposition home or self-care (01) ==
LOC: SDC 08:56
PROVIDERS: ATTEND Orthopaedic Surgery Hand Surgery
PROC: 0JBG0ZZ Excision of Right Lower Arm Subcutaneous Tissue and Fascia, Open Approach (ICD-10-PCS; principal; 2023-06-29)
DX: D36.9 Benign neoplasm, unspecified site (principal); I10 Essential (primary) hypertension; N40.0 Benign prostatic hyperplasia without lower urinary tract symptoms; Z90.49 Acquired absence of other specified parts of digestive tract; Z79.899 Other long term (current) drug therapy; Z79.82 Long term (current) use of aspirin
CPT/HCPCS: 88304; J1100; J2405; J2704; J3490; S0020

== ENCOUNTER 2024-05-12 13:30 | Outpatient (CLI) | payer MEDICARE, BC | END 2024-05-12 13:31 | disposition home or self-care (01) | LOC: BICMAMMO 13:30 | PROVIDERS: ATTEND Internal Medicine Endocrinology, Diabetes & Metabolism | DX: M81.8 Other osteoporosis without current pathological fracture (principal) | CPT/HCPCS: 77080 ==

== ENCOUNTER 2025-05-13 13:06 | Outpatient (CLI) | payer MEDICARE, BC | END 2025-05-13 13:07 | disposition home or self-care (01) | LOC: BICMAMMO 13:06 | PROVIDERS: ATTEND Internal Medicine Endocrinology, Diabetes & Metabolism | DX: M81.8 Other osteoporosis without current pathological fracture (principal); M85.851 Other specified disorders of bone density and structure, right thigh; M85.852 Other specified disorders of bone density and structure, left thigh | CPT/HCPCS: 77080 ==

== ENCOUNTER 2025-07-21 09:19 | Outpatient (CLI) | payer MEDICARE, BC | END 2025-07-21 09:20 | disposition home or self-care (01) | LOC: MRI 09:19 | PROVIDERS: ATTEND Psychiatry & Neurology Neurology | DX: I63.9 Cerebral infarction, unspecified (principal); F03.918 Unspecified dementia, unspecified severity, with other behavioral disturbance; G93.89 Other specified disorders of brain; R56.9 Unspecified convulsions | CPT/HCPCS: 70553; 76376 ==